=== PATIENT | male | born 1995 | race Caucasian/White ===

== ENCOUNTER 2023-08-27 12:08 | Emergency (ER) | payer BC, SELFPAY ==
[2023-08-27] VITALS (23 sets, daily range): BP systolic 115–138; BP diastolic 63–81; PULSE 55–72; RESP 14–29; TEMP 36.6; O2SAT 82–100; BMI 33.5
--- NOTE | 2023-08-27 12:15 | ECG_ITS ---
[facility] Test Date: 2023-08-27 Pat Name: GIA BUCHANAN Department: Room: - Gender: Male Hand Presser: : 1995 Requested By: Order Number: [id number] Reading MD: STEFAN CHAMPION Measurements Intervals [place] Rate: 65 P: 50 AL: 152 QRS: 91 QRSD: 98 T: 3 QT: 384 QTc: 395 Interpretive Statements 1100 Sinus rhythm 4068 Nonspecific Twave abnormality 7102 Moderate right axis deviation 9130 borderline ECG No previous ECG available for comparison Electronically Signed On 08-28-2023 6:51:42 EST by STEFAN CHAMPION
[2023-08-27 12:35] LABS: SARS-CoV-2 Ag NEGATIVE (NEGATIVE)
--- NOTE | 2023-08-27 12:55 | ED_ITS ---
Documented by User: Amrit Grayson MD 08/27/23 12:56 HPI - General Adult General Chief complaint: Arrhythmia/Palpitations Stated complaint: PALPITATIONS Time Seen by Provider: 08/27/23 12:54 Source: patient Mode of arrival: ambulance Limitations: no limitations Related Data Home Medications Medication Instructions Recorded Confirmed No Known Home Medications 08/27/23 08/27/23 Allergies Allergy/AdvReac Type Severity Reaction Status Date / Time amoxicillin AdvReac Mild Verified 08/27/23 12:11 PFSH PFSH Social History Smoking status: Never smoker Exam Constitutional Vital Signs, click to edit/add: Last Vital Signs Temp 97.8 F 08/27/23 12:11 Pulse 61 08/27/23 15:01 Resp 18 08/27/23 15:01 BP 131/72 08/27/23 15:01 Pulse Ox 100 08/27/23 13:10 Course Vital Signs Vital signs: Vital Signs Temperature 97.8 F 08/27/23 12:11 Pulse Rate 72 08/27/23 12:11 Respiratory Rate 18 08/27/23 12:11 Blood Pressure 138/81 08/27/23 12:11 Pulse Oximetry 99 08/27/23 12:11 Temperature 97.8 F 08/27/23 12:11 Pulse Rate 61 08/27/23 15:01 Respiratory Rate 18 08/27/23 15:01 Blood Pressure 131/72 08/27/23 15:01 Pulse Oximetry 100 08/27/23 13:10 Medical Decision Making Lab Data Labs: Lab Results 08/27/23 08/27/23 Range/Units 12:14 13:30 Sodium 140 (136-145) mmol/L Potassium 3.7 (3.5-5.1) mmol/L Chloride 101 (98-107) mmol/L Carbon Dioxide 28.1 (21.0-32.0) mmol/L Anion Gap 14.6 BUN 13.0 (7.0-18.0) mg/dL Creatinine 0.85 (0.70-1.30) mg/dL Est GFR ( Amer) >60 (>=60) Est GFR (Non-Af Amer) >60 (>=60) BUN/Creatinine Ratio 15.3 Glucose 102 (74-106) mg/dL Calcium 9.4 (8.5-10.1) mg/dL Total Creatine Kinase 56 (39-308) U/L SARS-CoV-2 (PCR) Negative (NEGATIVE) Influenza Type A Ag Negative Influenza Type B Ag Negative SARS-CoV-2 RNA (ELINOR) Not detected (NOT DETECTE) ECG Data Attestation: I personally reviewed and interpreted this ECG as follows: (EKG interpretation. Normal sinus rhythm at 65 beats a minute. Normal axis deviation. No acute ST elevation, no acute ectopy. QTC of 395. T-wave inversion in lead 3, aVf) Discharge Plan Discharge Chief Complaint: Arrhythmia/Palpitations Clinical Impression: Palpitations Patient Disposition: Home, Self-Care Time of Disposition Decision: 15:04 Condition: Good Mode of Transportation: Private Vehicle Prescriptions / Home Meds: No Action No Known Home Medications Instructions: Heart Palpitations (ED), Lightheadedness (ED) Stand Alone Forms: Portal Instructions Referrals: Physician,Non-Staff, MD [Primary Care Provider] - As soon as possible Discharge Date/Time: 08/27/23 15:13 Documented by User: Swapna Chen 08/27/23 16:11 HPI - General Adult General Chief complaint: Arrhythmia/Palpitations Stated complaint: PALPITATIONS Time Seen by Provider: 08/27/23 12:54 Related Data Home Medications Medication Instructions Recorded Confirmed No Known Home Medications 08/27/23 08/27/23 Allergies Allergy/AdvReac Type Severity Reaction Status Date / Time amoxicillin AdvReac Mild Verified 08/27/23 12:11 PFSH PFSH Social History Smoking status: Never smoker Exam Constitutional Vital Signs, click to edit/add: Last Vital Signs Temp 97.8 F 08/27/23 12:11 Pulse 61 08/27/23 15:01 Resp 18 08/27/23 15:01 BP 131/72 08/27/23 15:01 Pulse Ox 100 08/27/23 13:10 Course Vital Signs Vital signs: Vital Signs Temperature 97.8 F 08/27/23 12:11 Pulse Rate 72 08/27/23 12:11 Respiratory Rate 18 08/27/23 12:11 Blood Pressure 138/81 08/27/23 12:11 Pulse Oximetry 99 08/27/23 12:11 Temperature 97.8 F 08/27/23 12:11 Pulse Rate 61 08/27/23 15:01 Respiratory Rate 18 08/27/23 15:01 Blood Pressure 131/72 08/27/23 15:01 Pulse Oximetry 100 08/27/23 13:10 Medical Decision Making MDM Narrative Medical decision making narrative: Medical Records Medical records reviewed: Yes I reviewed the patient's medical records Lab Data Lab results reviewed: Yes I reviewed the patient's lab results Labs: Lab Results 08/27/23 08/27/23 Range/Units 12:14 13:30 Sodium 140 (136-145) mmol/L Potassium 3.7 (3.5-5.1) mmol/L Chloride 101 (98-107) mmol/L Carbon Dioxide 28.1 (21.0-32.0) mmol/L Anion Gap 14.6 BUN 13.0 (7.0-18.0) mg/dL Creatinine 0.85 (0.70-1.30) mg/dL Est GFR ( Amer) >60 (>=60) Est GFR (Non-Af Amer) >60 (>=60) BUN/Creatinine Ratio 15.3 Glucose 102 (74-106) mg/dL Calcium 9.4 (8.5-10.1) mg/dL Total Creatine Kinase 56 (39-308) U/L SARS-CoV-2 (PCR) Negative (NEGATIVE) Influenza Type A Ag Negative Influenza Type B Ag Negative SARS-CoV-2 RNA (ELINOR) Not detected (NOT DETECTE) ECG Data Attestation: ?I have reviewed the pertinent ECG results. (EKG interpretation. Normal sinus rhythm at 65 beats a minute. Normal axis deviation. No acute ST elevation, no acute ectopy. QTC of 395. T-wave inversion in lead 3, aVf) Interpretation: Measurements Intervals [place] Rate: 65 P: 50 ID: 152 QRS: 91 QRSD: 98 T: 3 QT: 384 QTc: 395 Interpretive Statements 1100 Sinus rhythm 4068 Nonspecific Twave abnormality 7102 Moderate right axis deviation 9130 borderline ECG No previous ECG available for comparison Discharge Plan Discharge Chief Complaint: Arrhythmia/Palpitations Clinical Impression: Palpitations Patient Disposition: Home, Self-Care Time of Disposition Decision: 15:04 Condition: Good Mode of Transportation: Private Vehicle Prescriptions / Home Meds: No Action No Known Home Medications Instructions: Heart Palpitations (ED), Lightheadedness (ED) Stand Alone Forms: Portal Instructions Referrals: Physician,Non-Staff, MD [Primary Care Provider] - As soon as possible Discharge Date/Time: 08/27/23 15:13
--- NOTE | 2023-08-27 13:10 | ED.GENADUL1 ---
Documented by User: Swapna Chen 08/27/23 15:52 HPI - General Adult General Chief complaint: Arrhythmia/Palpitations Stated complaint: PALPITATIONS Time Seen by Provider: 08/27/23 12:54 Source: patient Mode of arrival: ambulance Limitations: no limitations History of Present Illness HPI narrative: 28 year old male presents to the ED for palpitations. States he has not been feeling well the past few days. Reports fatigue, body aches. Today he felt like his heart was racing. States he became lightheaded, dizzy. Denies fever, chills, PATTON, vision changes, weakness. Denies CP, cough, SOB. Denies N/V/D, abd pain. Denies pain at this time. Related Data Home Medications Medication Instructions Recorded Confirmed No Known Home Medications 08/27/23 08/27/23 Allergies Allergy/AdvReac Type Severity Reaction Status Date / Time amoxicillin AdvReac Mild Verified 08/27/23 12:11 Review of Systems ROS Constitutional Reports: fatigue; Denies: fever or chills Eyes Denies: change in vision Ears, nose, mouth, and throat Denies: throat pain Cardiovascular Reports: palpitations and lightheadedness; Denies: chest pain or edema Respiratory Denies: shortness of breath Gastrointestinal Denies: abdominal pain, nausea, vomiting or diarrhea Musculoskeletal Denies: back pain or neck pain Integumentary/Breast Denies: rash Neurological Reports: dizziness; Denies: headache, numbness in extremities, weakness in extremities, lack of coordination or slurred speech PFSH PFSH Social History Smoking status: Never smoker Exam Constitutional Vital Signs, click to edit/add: Last Vital Signs Temp 97.8 F 08/27/23 12:11 Pulse 61 08/27/23 15:01 Resp 18 08/27/23 15:01 BP 131/72 08/27/23 15:01 Pulse Ox 100 08/27/23 13:10 Common normals: no apparent distress and oriented x3 General appearance: cooperative HENMT Nose: external nose normal Mouth: oral and palatal mucosa normal Eye Common normals: PERRL, EOMs intact bilaterally, conjunctivae normal and no scleral icterus Neck & C-Spine Common normals: supple Chest Chest: symmetrical chest wall rise Respiratory Common normals: normal respiratory effort Effort & inspection: able to speak in complete sentences and symmetric chest movement Auscultation: clear to auscultation bilaterally Cardio Common normals: regular rate and regular rhythm GI Common normals: Normal to inspection, nondistended, normoactive bowel sounds present, soft to palpation and non-tender Neuro Common normals: oriented x3 and CN's II-XII intact bilaterally Sensorium/orientation: awake and alert Speech: speech normal Gait (neuro): normal gait Course Vital Signs Vital signs: Vital Signs Temperature 97.8 F 08/27/23 12:11 Pulse Rate 72 08/27/23 12:11 Respiratory Rate 18 08/27/23 12:11 Blood Pressure 138/81 08/27/23 12:11 Pulse Oximetry 99 08/27/23 12:11 Temperature 97.8 F 08/27/23 12:11 Pulse Rate 61 08/27/23 15:01 Respiratory Rate 18 08/27/23 15:01 Blood Pressure 131/72 08/27/23 15:01 Pulse Oximetry 100 08/27/23 13:10 Medical Decision Making MDM Narrative Medical decision making narrative: Laboratory studies were unremarkable. Covid-19 was negative. He was given IV fluids here in the ED. He reported he is feeling much better. He will be discharged home. He was advised to follow up with his pcp for a recheck, further evaluation and treatment. Medical Records Medical records reviewed: Yes I reviewed the patient's medical records Lab Data Lab results reviewed: Yes I reviewed the patient's lab results Labs: Lab Results 08/27/23 08/27/23 Range/Units 12:14 13:30 Sodium 140 (136-145) mmol/L Potassium 3.7 (3.5-5.1) mmol/L Chloride 101 (98-107) mmol/L Carbon Dioxide 28.1 (21.0-32.0) mmol/L Anion Gap 14.6 BUN 13.0 (7.0-18.0) mg/dL Creatinine 0.85 (0.70-1.30) mg/dL Est GFR ( Amer) >60 (>=60) Est GFR (Non-Af Amer) >60 (>=60) BUN/Creatinine Ratio 15.3 Glucose 102 (74-106) mg/dL Calcium 9.4 (8.5-10.1) mg/dL Total Creatine Kinase 56 (39-308) U/L SARS-CoV-2 (PCR) Negative (NEGATIVE) Influenza Type A Ag Negative Influenza Type B Ag Negative SARS-CoV-2 RNA (ELINOR) Not detected (NOT DETECTE) ECG Data Attestation: ?I have reviewed the pertinent ECG results. (EKG was reviewed by the attending physician. It showed sinus rhythm at a rate of 65. No acute ST segment changes. ) Interpretation: Measurements Intervals [place] Rate: 65 P: 50 DE: 152 QRS: 91 QRSD: 98 T: 3 QT: 384 QTc: 395 Interpretive Statements 1100 Sinus rhythm 4068 Nonspecific Twave abnormality 7102 Moderate right axis deviation 9130 borderline ECG No previous ECG available for comparison Discharge Plan Discharge Chief Complaint: Arrhythmia/Palpitations Clinical Impression: Palpitations Patient Disposition: Home, Self-Care Time of Disposition Decision: 15:04 Condition: Good Mode of Transportation: Private Vehicle Prescriptions / Home Meds: No Action No Known Home Medications Instructions: Heart Palpitations (ED), Lightheadedness (ED) Stand Alone Forms: Portal Instructions Referrals: Physician,Non-Staff, MD [Primary Care Provider] - As soon as possible Discharge Date/Time: 08/27/23 15:13 Documented by User: Amrit Grayson MD 08/27/23 18:32 HPI - General Adult General Chief complaint: Arrhythmia/Palpitations Stated complaint: PALPITATIONS Time Seen by Provider: 08/27/23 12:54 Related Data Home Medications Medication Instructions Recorded Confirmed No Known Home Medications 08/27/23 08/27/23 Allergies Allergy/AdvReac Type Severity Reaction Status Date / Time amoxicillin AdvReac Mild Verified 08/27/23 12:11 PFSH PFSH Social History Smoking status: Never smoker Exam Constitutional Vital Signs, click to edit/add: Last Vital Signs Temp 97.8 F 08/27/23 12:11 Pulse 61 08/27/23 15:01 Resp 18 08/27/23 15:01 BP 131/72 08/27/23 15:01 Pulse Ox 100 08/27/23 13:10 Course Vital Signs Vital signs: Vital Signs Temperature 97.8 F 08/27/23 12:11 Pulse Rate 72 08/27/23 12:11 Respiratory Rate 18 08/27/23 12:11 Blood Pressure 138/81 08/27/23 12:11 Pulse Oximetry 99 08/27/23 12:11 Temperature 97.8 F 08/27/23 12:11 Pulse Rate 61 08/27/23 15:01 Respiratory Rate 18 08/27/23 15:01 Blood Pressure 131/72 08/27/23 15:01 Pulse Oximetry 100 08/27/23 13:10 Medical Decision Making MDM Narrative Medical decision making narrative: Laboratory studies were unremarkable. Covid-19 was negative. He was given IV fluids here in the ED. He reported he is feeling much better. He will be discharged home. He was advised to follow up with his pcp for a recheck, further evaluation and treatment. EKG interpretation. Normal sinus rhythm at 65 beats a minute. Normal axis deviation. No acute ST elevation, no acute ectopy. QTC of 395. T-wave inversion in lead 3, aVf Lab Data Labs: Lab Results 08/27/23 08/27/23 Range/Units 12:14 13:30 Sodium 140 (136-145) mmol/L Potassium 3.7 (3.5-5.1) mmol/L Chloride 101 (98-107) mmol/L Carbon Dioxide 28.1 (21.0-32.0) mmol/L Anion Gap 14.6 BUN 13.0 (7.0-18.0) mg/dL Creatinine 0.85 (0.70-1.30) mg/dL Est GFR ( Amer) >60 (>=60) Est GFR (Non-Af Amer) >60 (>=60) BUN/Creatinine Ratio 15.3 Glucose 102 (74-106) mg/dL Calcium 9.4 (8.5-10.1) mg/dL Total Creatine Kinase 56 (39-308) U/L SARS-CoV-2 (PCR) Negative (NEGATIVE) Influenza Type A Ag Negative Influenza Type B Ag Negative SARS-CoV-2 RNA (ELINOR) Not detected (NOT DETECTE) Discharge Plan Discharge Chief Complaint: Arrhythmia/Palpitations Clinical Impression: Palpitations Patient Disposition: Home, Self-Care Time of Disposition Decision: 15:04 Condition: Good Mode of Transportation: Private Vehicle Prescriptions / Home Meds: No Action No Known Home Medications Instructions: Heart Palpitations (ED), Lightheadedness (ED) Stand Alone Forms: Portal Instructions Referrals: Physician,Non-Staff, MD [Primary Care Provider] - As soon as possible Discharge Date/Time: 08/27/23 15:13
[2023-08-27 13:17] LABS: Influenza Virus A Antigen Negative; Influenza Virus B Antigen Negative; Internal Control Within Normal Limits
[2023-08-27] MEDS: 0.9 % SODIUM CHLORIDE 1,000 ML 1000 ML IV (13:24)
[2023-08-27 13:52] LABS: Anion Gap 14.6; BUN Creatinine Ratio 15.3; Calcium 9.4 mg/dL (8.5-10.1); Carbon Dioxide 28.1 mmol/L (21.0-32.0); Chloride 101 mmol/L (98-107); Creatine Kinase 56 U/L (39-308); Estimated GFR (African America >60 (>=60); Estimated GFR (Non-African Ame >60 (>=60); Glucose 102 mg/dL (74-106); Potassium 3.7 mmol/L (3.5-5.1); Sodium 140 mmol/L (136-145)
[2023-08-27 15:49] LABS: SARS-CoV-2 NAA NOT DETECTED (NOT DETECTE)
== END 2023-08-27 15:13 | disposition home or self-care (01) ==
PROVIDERS: Emergency Provider Emergency Medicine
DX: R00.2 Palpitations (principal); Z20.822 Contact with and (suspected) exposure to COVID-19
CPT/HCPCS: 36415; 80048; 82550; 87635; 87804; 87811; 93005; 99285